=== PATIENT | male | born 1965 | race Caucasian/White ===

== ENCOUNTER 2016-08-30 17:29 | Inpatient (IN) | payer MEDICAID, OTHER ==
[~2016-08-30] VITALS: Ht 177.8 cm; Wt 81.6 kg
[~2016-08-30 17:29] MED LIST: [UNRECOGNIZED DRUG - OTHER] PO
[2016-08-30] MEDS ORDERED: ONDANSETRON IV *ER 4 MG/2 ML VIAL IV ONE (17:45)
[2016-08-30] MEDS ORDERED: IV NS 1000 ML 1,000 ML IV ONE (17:45)
[2016-08-30] MEDS ORDERED: PANTOPRAZOLE SODIUM IV 40 MG in IV DEXTROSE 5% 100 ML IV ONE ×2 (17:45→18:00)
--- NOTE | 2016-08-30 17:56 | NUR ---
PT IS IN ROOM #1B. DR AGUILAR EVALUATED THE PT.
[2016-08-30 17:59] LABS: BASOPHILS # (AUTO) 0.1 K/uL (0.0-8.0); BASOPHILS % (AUTO) 0.4 % (0.0-2.0); EOSINOPHILS % (AUTO) 0.1 % (0.0-7.0); HEMATOCRIT 41.5 % (40-50); HEMOGLOBIN 13.8 G/DL (14.0-18.0); LYMPHOCYTES # (AUTO) 1.1 K/UL (0.8-4.8); LYMPHOCYTES % (AUTO) 5.5 % (20.5-51.5); MEAN CORPUSCULAR HEMOGLOBIN 31.3 UUG (27.0-31.0); MEAN CORPUSCULAR HGB CONC 33 g/dL (32.0-37.0); MEAN CORPUSCULAR VOLUME 94.3 FL (82.0-92.0); MONOCYTES # (AUTO) 0.6 K/UL (0.1-1.30); MONOCYTES % (AUTO) 2.9 % (0.0-11.0); NEUTROPHILS # (AUTO) 17.8 K/UL (1.8-8.9); NEUTROPHILS % (AUTO) 91.1 % (38.5-71.5); PLATELET COUNT (AUTO) 287 K/UL (150-450); WHITE BLOOD COUNT (AUTO) 19.6 K/UL (4.0-11.2)
[2016-08-30 18:00] LABS: CREATININE 1.3 mg/dL (0.6-1.3); POTASSIUM 3.8 mmol/L (3.5-5.1)
[2016-08-30] MEDS ORDERED: LORAZEPAM 2 MG/1 ML VIAL IV ONE ×2 (18:00→18:30)
[2016-08-30] MEDS ORDERED: ALBUTEROL SULFATE 2.5 MG/3 ML NEBU NEB ONE (18:00)
[2016-08-30] MEDS ORDERED: IPRATROPIUM BROMIDE 0.5 MG/2.5 ML NEBU NEB ONE (18:00)
[2016-08-30] MEDS ORDERED: methylPREDNISolone SOD SUCC 125 MG/2 ML VIAL IV ONE (18:00)
[2016-08-30] MEDS ORDERED: MAGNESIUM SULFATE 2 GM in IV DEXTROSE 5% 100 ML IV ONE (18:00)
[2016-08-30] MEDS ORDERED: LEVOFLOXACIN 750 MG/D5W 150 ML PIGGYBACK IV ONE (18:00)
[2016-08-30] MEDS ORDERED: PANTOPRAZOLE SODIUM 40 MG VIAL ONE (18:01)
[2016-08-30] MEDS ORDERED: MORPHINE SULFATE 2 MG/1 ML DISP.SYRIN ONE ×2 (18:01→18:29)
[2016-08-30] MEDS ORDERED: ONDANSETRON 4 MG/2 ML VIAL ONE (18:01)
[2016-08-30 18:05] LABS: BILIRUBIN,TOTAL 0.9 mg/dL (0.2-1.0); TOTAL PROTEIN, SERUM 8.3 g/dL (6.4-8.2)
[2016-08-30] MEDS ORDERED: LORAZEPAM 2 MG/1 ML VIAL ONE ×2 (18:05→18:37)
[2016-08-30] MEDS ORDERED: IPRATROPIUM BROMIDE 0.5 MG/2.5 ML NEBU ONE (18:08)
[2016-08-30] MEDS ORDERED: ALBUTEROL SULFATE 2.5 MG/3 ML NEBU ONE (18:08)
[2016-08-30 18:11] LABS: ABG BASE EXCESS 0.5 mmol/L; ABG HCO3 26.4 mmol/L; ABG PCO2 47.1 mmHg (35.0-45.0); ABG PH 7.366 (7.350-7.450); ABG PO2 113.5 mmHg (75.0-100.0); ABG SITE RIGHT RADIAL; ABG TOTAL HEMOGLOBIN 13.4 G/dL (13.5-18.0); COHb 1.3 % (0.5-1.5); MetHb 0.3 % (0.0-1.5); O2Hb 94.6 % (94.0-97.0)
[2016-08-30 18:15] LABS: BAND % (MANUAL) 22 % (0-10); LYMPHOCYTES % (MANUAL) 7 % (20-40); MONOCYTES % (MANUAL) 4 % (2-10); NEUTROPHILS % (MANUAL) 67 % (42-75)
[2016-08-30] MEDS ORDERED: MORPHINE SULFATE 2 MG/1 ML DISP.SYRIN IV ONE ×2 (18:15→19:15)
[2016-08-30] MEDS ORDERED: methylPREDNISolone SOD SUCC 125 MG/2 ML VIAL ONE (18:17)
[2016-08-30] MEDS ORDERED: MAGNESIUM SULFATE 1 GM/2 ML VIAL ONE (18:18)
[2016-08-30] MEDS ORDERED: LEVOFLOXACIN 750MG/D5W 150 ML IV ONE (18:18)
[2016-08-30] MEDS ORDERED: PIPERACILLIN SODIUM/TAZOBACTAM 3.375 G in IV DEXTROSE 5% 50 ML IV ONE (18:45)
[2016-08-30] MEDS ORDERED: VANCOMYCIN IV 1,000 MG in IV DEXTROSE 5% 250 ML IV ONE (18:45)
[2016-08-30] MEDS ORDERED: NORMAL SALINE FLUSH 10 ML DISP.SYRIN ONE (18:58)
[2016-08-30] MEDS ORDERED: IV NORMAL SALINE 250 ML IV ONE (18:58)
[2016-08-30] MEDS ORDERED: IOHEXOL 300MG/ML 100 ML INFUS..BTL ONE (18:58)
--- NOTE | 2016-08-30 19:10 | NUR ---
Received report from TERRY Bruce. Assumed care of pt at this time. Pt to CT via gege
--- NOTE | 2016-08-30 19:35 | NUR ---
Pt returned from CT, moaning and restless and diaphortic. Pt placed on monitor, remains in ST. Pt initially 88% on NRB. Pt repositioned for effective resp, O2 sats improved to 95 %. Pt remains tachypnic at 26. Second IV established. Zosyn started, will monitor for any adverse reactions. Admission pending. Awaiting call back from [facility].
[2016-08-30] MEDS ORDERED: PIPERACILLIN/TAZOBACTAM/D5W 50 ML IV ONE (19:44)
--- NOTE | 2016-08-30 19:58 | NUR ---
No adverse reactions noted from zosyn. Vancomycin started, will monitor for any adverse reactions.
[2016-08-30] MEDS ORDERED: VANCOMYCIN IV 200 ML ONE (20:02)
--- NOTE | 2016-08-30 20:25 | NUR ---
Report called to Josefa Gould. Preparing to transfer pt to the ICU
[2016-08-30] MEDS ORDERED: ACETAMINOPHEN 325 MG TABLET PO PRN (20:30)
[2016-08-30] MEDS ORDERED: ONDANSETRON 4 MG/2 ML VIAL IV PRN (20:30)
[2016-08-30] MEDS ORDERED: HYDROCODONE/APAP 5-325MG TABLET PO PRN (20:30)
[2016-08-30] MEDS ORDERED: Z GUARD REMEDY PASTE 57 GM TUBE TOP PRN (20:30)
[2016-08-30] MEDS ORDERED: MAGNESIUM HYDROXIDE 30 ML LIQUID UDC PO PRN (20:30)
[2016-08-30] MEDS ORDERED: IV NORMAL SALINE 1000 ML BAG IV ONE (20:30)
--- NOTE | 2016-08-30 20:43 | NUR ---
CLINICAL PHARMACY NOTE:VANCOMYCIN DOSING Request for vancomycin dosing 0n 51y/o male 5'10" 170 lbs for pneumonia temp 99.2 BUN 12 Scr 1.3 WBC 19.6 bands 22 also on Zosyn Received 1gm vancomycin in ER continue vancomycin 1 Gm ivpb q12h estimated trough 17. Will order trough level prior to 4th dose. Will continue to monitor
[2016-08-30 21:00] VITALS: BP 113/81
--- NOTE | 2016-08-30 21:00 | NUR ---
Admitted a 51 year old male patient from ER with DX: PNA, AMS. To CCU 4. Patient obtunded, respirations grunting. O2 by 100% nonrebreathing mask. Opens eyes to loud name but goes back to sleep right away. Skin cool, diaphoretic. Assessment completed. Addendum: 08/31/16 at 0301 by LEIGHTON FRANZ RN Amended: Links added. Addendum: 08/31/16 at 0304 by LEIGHTON FRANZ RN Amended: Links added. Addendum: 08/31/16 at 0307 by LEIGHTON FRANZ RN Amended: Links added.
[2016-08-30 21:15] VITALS: BP 104/77
[2016-08-30] MEDS: methylPREDNISolone SOD SUCC 40 MG/ML VIAL IV SCH (21:21)
[2016-08-30 21:30] VITALS: BP 104/76
[2016-08-30] MEDS: SULFAMETHOXAZOL IV SCH (21:42)
[2016-08-30] MEDS: TRIMETHOPRI IV SCH (21:42)
[2016-08-30] MEDS: DEXTROSE IV SCH (21:42)
--- NOTE | 2016-08-30 21:50 | NUR ---
Dr. Reyna here. Aware of patient's condition. Meena ordered. Patient's GF called; will be here. Addendum: 08/31/16 at 0304 by LEIGHTON FRANZ RN Amended: Links added. Addendum: 08/31/16 at 0307 by LEIGHTON FRANZ RN Amended: Links added.
[2016-08-30 22:00] VITALS: BP 106/76
[2016-08-30] MEDS ORDERED: SULFAMETHOXAZOL/TRIMETHOPRI IV 15 ML in IV DEXTROSE 5% 250 ML IV SCH (22:00)
--- NOTE | 2016-08-30 22:00 | NUR ---
ABGs drawn by RT. Results seen by Dr. Reyna. Patient's GF/significant other here. Dr. Reyna spoke with her. Addendum: 08/30/16 at 2231 by LEIGHTON FRANZ RN Amended: Links added.
[2016-08-30 22:22] LABS: ABG BASE EXCESS -0.2 mmol/L; ABG HCO3 25.1 mmol/L; ABG PCO2 43.5 mmHg (35.0-45.0); ABG PH 7.379 (7.350-7.450); ABG PO2 91.6 mmHg (75.0-100.0); ABG SITE LEFT RADIAL; ABG TOTAL HEMOGLOBIN 12.8 G/dL (13.5-18.0); COHb 1.5 % (0.5-1.5); MetHb 0.3 % (0.0-1.5); O2Hb 93.1 % (94.0-97.0)
--- NOTE | 2016-08-30 22:30 | NUR ---
Patient remains obtunded. Gottlieb catheter F# 16 inserted aseptically. With ricky urine draining. Specimen sent to lab for drug screen. Addendum: 08/31/16 at 0307 by LEIGHTON FRANZ RN Amended: Links added.
--- NOTE | 2016-08-30 22:50 | NUR ---
Results of urine drug screen seen by Dr. Reyna. Patient's father here. Anxious, demanding to talk to MD. Patient's GF and sister also at bedside. Dr. Reyna spoke with them.
[2016-08-30 22:52] LABS: *BILIRUBIN,URIN 1+ (NEGATIVE); *BLOOD, URINE Trace-intact (NEGATIVE); *CLARITY,URINE SLIGHTLY CLOUDY (CLEAR); *COLOR,URINE DARK YELLOW (YELLOW); *KETONES,URINE NEGATIVE (NEGATIVE); *PROTEIN,URINE 1+ (NEGATIVE); LEUKOCYTE ESTERASE ,URINE NEGATIVE (NEGATIVE); NITRITE, URINE NEGATIVE (NEGATIVE); PH,URINE 5.5 (5.0-8.0); UGLUCOSE NEGATIVE (NEGATIVE)
[2016-08-30 22:57] LABS: BACTERIA,URINE FEW /HPF (NONE SEEN); MUCUS,URINE FEW /LPF (0-FEW); SQUAMOUS EPITHELIAL CELL,UR FEW /HPF (NONE SEEN)
[2016-08-30 23:00] VITALS: BP 110/70
[2016-08-30 23:01] LABS: *AMPHETAMINE, URINE POSITIVE (NEGATIVE); *BARBITURATE, URINE NEGATIVE (NEGATIVE); *CANNABINOID, URINE POSITIVE (NEGATIVE); *COCCAINE, URINE POSITIVE (NEGATIVE); *OPIATE, URINE POSITIVE (NEGATIVE); *PHENCYCLIDINE SCREEN,URINE NEGATIVE (NEGATIVE)
[2016-08-30] MEDS: IV NS 1000 ML 1,000 ML IV PRN (23:29)
[2016-08-31] VITALS (23 sets, daily range): BP systolic 107–127; BP diastolic 58–82
[2016-08-31] MEDS: PIPERACILLIN/TAZOBACTAM/D5W 50 ML IV SCH ×4 (01:16→18:08)
--- NOTE | 2016-08-31 02:00 | NUR ---
Sleeping. VS stable; respirations regular non labored. ABGs drawn. Results unchanged.
[2016-08-31 02:07] LABS: ABG BASE EXCESS 0.3 mmol/L; ABG HCO3 25.9 mmol/L; ABG PCO2 45.5 mmHg (35.0-45.0); ABG PH 7.373 (7.350-7.450); ABG SITE RIGHT BRACHIAL; ABG TOTAL HEMOGLOBIN 12.8 G/dL (13.5-18.0); COHb 1.1 % (0.5-1.5); MetHb 0.3 % (0.0-1.5); O2Hb 95.4 % (94.0-97.0)
--- NOTE | 2016-08-31 04:00 | NUR ---
Patient woke up asking for orange juice. Able to answer questions well. Took some orange juice without problems. Patient reoriented. Plan of care discussed with him. Verbalized understanding.
--- NOTE | 2016-08-31 04:45 | NUR ---
Patient refused HIV testing. Claims he is positive and there's no need for the test. Am bath given; patient cooperative.
[2016-08-31 05:24] LABS: BASOPHILS # (AUTO) 0.1 K/uL (0.0-8.0); BASOPHILS % (AUTO) 0.5 % (0.0-2.0); EOSINOPHILS # (AUTO) 0.1 K/uL (0.0-0.7); HEMATOCRIT 36.2 % (40-50); HEMOGLOBIN 12.1 G/DL (14.0-18.0); LYMPHOCYTES # (AUTO) 0.7 K/UL (0.8-4.8); MEAN CORPUSCULAR HEMOGLOBIN 31.8 UUG (27.0-31.0); MEAN CORPUSCULAR HGB CONC 34 g/dL (32.0-37.0); MEAN CORPUSCULAR VOLUME 94.8 FL (82.0-92.0); MONOCYTES # (AUTO) 0.2 K/UL (0.1-1.30); MONOCYTES % (AUTO) 1.3 % (0.0-11.0); NEUTROPHILS # (AUTO) 12.7 K/UL (1.8-8.9); NEUTROPHILS % (AUTO) 92.2 % (38.5-71.5); PLATELET COUNT (AUTO) 240 K/UL (150-450); RED BLOOD CELL COUNT(AUTO) 3.82 MIL/UL (4.7-6.1); WHITE BLOOD COUNT (AUTO) 13.8 K/UL (4.0-11.2)
[2016-08-31 05:28] LABS: CREATININE 1.1 mg/dL (0.6-1.3); MAGNESIUM 1.9 mg/dL (1.8-2.4); PHOSPHOROUS 3.1 mg/dL (2.5-4.9)
[2016-08-31] MEDS: SULFAMETHOXAZOL IV SCH ×3 (05:50→21:44)
[2016-08-31] MEDS: TRIMETHOPRI IV SCH ×3 (05:50→21:44)
[2016-08-31] MEDS: DEXTROSE IV SCH ×3 (05:50→21:44)
[2016-08-31 06:07] LABS: ABG BASE EXCESS 1.1 mmol/L; ABG HCO3 26.3 mmol/L; ABG PCO2 44.1 mmHg (35.0-45.0); ABG PH 7.393 (7.350-7.450); ABG PO2 134.2 mmHg (75.0-100.0); ABG SITE LEFT RADIAL; ABG TOTAL HEMOGLOBIN 12.9 G/dL (13.5-18.0); COHb 0.8 % (0.5-1.5); MetHb 0.1 % (0.0-1.5); O2Hb 96.3 % (94.0-97.0)
[2016-08-31] MEDS: VANCOMYCIN IV 1 G in PREMIXED 0 EACH IV SCH ×2 (06:36→18:07)
--- NOTE | 2016-08-31 07:40 | NUR ---
Spoke to Dr. Reyna about the following: patient refused HIV testing, T helper CD4 test is not stat and result will be back in a week and clarify with him ABGS Q4H. Order received. Am RNs informed of MD's order.
[2016-08-31] MEDS: methylPREDNISolone SOD SUCC 40 MG/ML VIAL IV SCH ×2 (09:23→20:37)
[2016-08-31 10:35] LABS: ABG BASE EXCESS 0.9 mmol/L; ABG HCO3 25.8 mmol/L; ABG PCO2 42.3 mmHg (35.0-45.0); ABG PH 7.403 (7.350-7.450); ABG PO2 63.5 mmHg (75.0-100.0); ABG SITE RIGHT RADIAL; ABG TOTAL HEMOGLOBIN 13.8 G/dL (13.5-18.0); COHb 0.8 % (0.5-1.5); MetHb 0.1 % (0.0-1.5); O2Hb 89.8 % (94.0-97.0)
--- NOTE | 2016-08-31 15:09 | NUR ---
Clinical pharmacy note-Vancomycin dosing per pharmacy Subjective: To continue Vancomycin dosing on this patient for pneumonia Objective; BUN 10 Scr 1.1 WBC 13.8 Temp 97.9 Assessment/Plan: Since renal function is stable, will continue same dose of Vancomycin 1 gram IV every 12hrs (second dose was given today at 0700) and draw trough by 4th dose(on order tomorrow at 0630) for expected trough around 17. Will monitor renal function closely to adjust the dose if needed. Will follow daily.
[2016-08-31] MEDS: IV NS 1000 ML 1,000 ML IV PRN (15:40)
--- NOTE | 2016-08-31 16:30 | NUR ---
Spoke to Dr. Reyna about pt. requsting to leave the hospital AMA. Stated pt. has a very bad PNA and will not be able to stay away from the hospital for long before checking back to the ER. Explained to pt.with the help of girl friend who was able to calm pt. down.
[2016-08-31] MEDS: LORAZEPAM 2 MG/1 ML VIAL IV PRN (20:17)
--- NOTE | 2016-08-31 22:00 | NUR ---
1899 Received report from RN Uche. Pt already starting to scream and cursing using foul language. verbally abusive. yelling at nurses. checked eMAR for any prn meds for anxiety and agitation. Pt wanting to go AMA. Spoke to Dr. Reyna about pt. wanting to leave the hospital AMA. Explained to pt.that he has a very bad PNA and will come right back to the hospital. And he will be responsible for anything that happens to him because he is leaving against medical advise. Order received from MD for ativan 1 mg q4h. medication given as ordered with good result. Pt is calm and resting.
[2016-09-01] VITALS (11 sets, daily range): BP systolic 119–131; BP diastolic 61–87
[2016-09-01] MEDS: PIPERACILLIN/TAZOBACTAM/D5W 50 ML IV SCH ×2 (01:15→06:15)
[2016-09-01] MEDS: LORAZEPAM 2 MG/1 ML VIAL IV PRN (05:10)
[2016-09-01] MEDS: TRIMETHOPRI IV SCH (05:34)
[2016-09-01] MEDS: DEXTROSE IV SCH (05:34)
[2016-09-01] MEDS: SULFAMETHOXAZOL IV SCH (05:34)
[2016-09-01] MEDS: IV NS 1000 ML 1,000 ML IV PRN (05:39)
[2016-09-01 06:26] LABS: BASOPHILS % (AUTO) 0.1 % (0.0-2.0); HEMOGLOBIN 10.9 G/DL (14.0-18.0); LYMPHOCYTES # (AUTO) 0.5 K/UL (0.8-4.8); LYMPHOCYTES % (AUTO) 3.2 % (20.5-51.5); MEAN CORPUSCULAR HEMOGLOBIN 31.8 UUG (27.0-31.0); MEAN CORPUSCULAR HGB CONC 34 g/dL (32.0-37.0); MEAN CORPUSCULAR VOLUME 94.8 FL (82.0-92.0); MONOCYTES # (AUTO) 0.4 K/UL (0.1-1.30); MONOCYTES % (AUTO) 2.3 % (0.0-11.0); NEUTROPHILS # (AUTO) 14.8 K/UL (1.8-8.9); NEUTROPHILS % (AUTO) 94.4 % (38.5-71.5); PLATELET COUNT (AUTO) 270 K/UL (150-450); WHITE BLOOD COUNT (AUTO) 15.6 K/UL (4.0-11.2)
[2016-09-01 06:31] LABS: POTASSIUM 4.2 mmol/L (3.5-5.1); RED BLOOD CELL COUNT(AUTO) 3.43 MIL/UL (4.7-6.1)
[2016-09-01 06:32] LABS: HEMATOCRIT 32.5 % (40-50)
[2016-09-01] MEDS: VANCOMYCIN IV 1 G in PREMIXED 0 EACH IV SCH (06:54)
[2016-09-01 07:07] LABS: *BASOS 0 % (.); *EOS 0 % (.); *HCT 36.1 % (37.5-51.0); *HGB 12.3 g/dL (12.6-17.7); *IMMATURE GRANULOCYTES 0 % (.); *LYMPHOCYTES 6 % (.); *LYMPHOCYTES ABSOLUTE 0.9 x10E3/uL (0.7-3.1); *MCH 32.1 pg (26.6-33.0); *MCHC 34.1 g/dL (31.5-35.7); *MCV 94 fL (79-97); *MONOCYTES 3 % (.); *MONOCYTES ABSOLUTE 0.4 x10E3/uL (0.1-0.9); *NEUTROPHILS 91 % (.); *PLT 247 x10E3/uL (150-379); *RBC 3.83 x10E6/uL (4.14-5.80); *RDW 13.6 % (12.3-15.4); *WBC 14.3 x10E3/uL (3.4-10.8)
--- NOTE | 2016-09-01 07:30 | NUR ---
RECIEVED LYING IN BED AWAKE, ALERT AND ORIENTEDX3. PT IS VERY ANXIOUS AND FEELING ANGRY ABOUT BEING HERE. EXPRESSED ABOUT LEAVING AGAINST MEDICAL ADVICE. HR IS SR. NO CHEST PAIN. IVF RUNNING ON THE LEFT AC INFUSING WELL. PT ON O2 AT 4LNC. NO APPARENT RESPIRATORY DISTRESS NOTED. LUNGS HAS SCATTERED RHONCHI. AFEBRILE.
--- NOTE | 2016-09-01 08:30 | NUR ---
ATE BREAKFAST WELL. FOLEYCATHETER INTACT AND DRAINING CLEAR YELLOW URINE. PT WANTED TO REMOVE IT.
[2016-09-01] MEDS: methylPREDNISolone SOD SUCC 40 MG/ML VIAL IV SCH (09:11)
[2016-09-01 09:12] LABS: BAND % (MANUAL) 13 % (0-10); LYMPHOCYTES % (MANUAL) 3 % (20-40); MONOCYTES % (MANUAL) 1 % (2-10); NEUTROPHILS % (MANUAL) 83 % (42-75)
--- NOTE | 2016-09-01 09:30 | NUR ---
SEEN AND EXAMINED BY DR LEVI AND SPEND HALF AN HOUR WITH PT EXPLAINING THE SIGNIFICANCE OF PT CRITICAL CONDITION. AND PT CONTINUES TO INSIST OF LEAVING AMA. DR LEVI CALLED THE FATHER OVER THE PHONE AND TALED WITH HIM AT LENGTH. DR LEVI ALSO CALLED THE PT,S GIRLFRIEND AND EXPLAINED TO HER THE IMPORTANCE OF WHY THE PT NEEDS TO STAY IN THE HOSPITAL.
--- NOTE | 2016-09-01 11:00 | NUR ---
PT SIGNED AMA. SEEN AND EXAMINED BY DR SALMERON, EXPLAINED TO PT THAT HE NEEDS TO STAY SECONDARY TO HIS OXYGENATION. PT REFUSES TO LISTEN.
--- NOTE | 2016-09-01 11:30 | NUR ---
FOLEYCATHETER REMOVED AND IV REMOVED. NOTIFIED BOTH FATHER AND GIRLFRIEND ABOUT PT'S INTENT TO LEAVE AMA AT THIS TIME.
--- NOTE | 2016-09-01 11:45 | NUR ---
PT'S FATHER CAME IN AND TALKED TO HIS SON TO STAY. PT BECAME VERY BELIGERENT AND LOUD AND DISRECTFUL TO HIS DAD. DR LEVI CAME IN AND EXPLAINED FURTHER TO THE PT. HE SHOWED HIS XRAY FILM TO THE PT. BUT PT IS VERY NON COMPLIANT AND DID NOT BELIEVE A SINGLE THING OF THE MD'S RECOMMENDATION. SECURITY AROUND FOR A WATCH. PT IS LUCID AND DETERMINED TO LEAVE.
--- NOTE | 2016-09-01 11:55 | NUR ---
PT LEFT THE ROOM AMA. AMA FORM SIGNED. WALKED OUT BY SECURITY. CONDITION IS UNCHANGED.
[2016-09-01 14:10] LABS: *HELPER T-LYMPH MARKR(CD4)ABSO 302 /uL (359-1519); *HELPER T-LYNPH MARKER CD4)% 33.5 % (30.8-58.5)
[2016-09-01] MEDS ORDERED: VANCOMYCIN IV 1,250 MG in IV DEXTROSE 5% 500 ML IV SCH (16:00)
== END 2016-09-01 13:48 | disposition left against medical advice (07) | DRG 720 ==
LOC: ER 17:33 → CCU 20:29
PROVIDERS: ADMIT Family Medicine; ATTEND Family Medicine
DX: A41.9 Sepsis, unspecified organism (principal); J96.01 Acute respiratory failure with hypoxia; G93.41 Metabolic encephalopathy; J96.02 Acute respiratory failure with hypercapnia; B59 Pneumocystosis; E87.1 Hypo-osmolality and hyponatremia; C80.1 Malignant (primary) neoplasm, unspecified; D53.9 Nutritional anemia, unspecified; D63.8 Anemia in other chronic diseases classified elsewhere; F41.9 Anxiety disorder, unspecified; K80.20 Calculus of gallbladder without cholecystitis without obstruction; Z91.19 Patient's noncompliance with other medical treatment and regimen; Z83.3 Family history of diabetes mellitus; Z87.01 Personal history of pneumonia (recurrent); F19.10 Other psychoactive substance abuse, uncomplicated; F17.200 Nicotine dependence, unspecified, uncomplicated; R73.9 Hyperglycemia, unspecified; F17.210 Nicotine dependence, cigarettes, uncomplicated; E53.8 Deficiency of other specified B group vitamins; D75.89 Other specified diseases of blood and blood-forming organs
CPT/HCPCS: 36415; 36600; 70030-TC; 71010; 71260; 80307; 83605; 83615; 83690; 83735; 84100; 85025; 85610; 86361; 87040; 87070; 87086; 87806; 93005; A4663; C9113; J1956; J2060; J2270; J2405; J2543; J2920; J2930; J3370; J3475; J3490; J3590; J7030; J7040; J7042; J7050; J7060; Q9967